=== PATIENT | female | born 1980 ===

== ENCOUNTER 2020-09-21 08:33 | Emergency (ER) | payer BC, OTHER ==
[2020-09-21] MEDS: Bacitracin Oint 1 GM U/D Packet TOP ONE (09:00)
--- NOTE | 2020-09-21 09:16 | EDM.PDOC ---
ED HPI GENERAL MEDICAL PROBLEM - General Chief Complaint: Laceration Stated Complaint: INJURED AT WORK Time Seen by Provider: 09/21/20 08:35 - History of Present Illness INITIAL COMMENTS - FREE TEXT/NARRATIVE: She cut her Rt 3rd finger at work while using a pill cutter. She held pressure to the area to stop the bleeding. - Related Data Allergies Allergy/AdvReac Type Severity Reaction Status Date / Time No Known Allergies Allergy Verified 09/21/20 08:52 Home Meds: Home Meds Phentermine HCl 50 mg PO DAILY 09/21/20 [History] hydroCHLOROthiazide [Hydrochlorothiazide] 50 mg PO DAILY 09/21/20 [History] ED ROS GENERAL - Review of Systems Review Of Systems: Comprehensive ROS is negative, except as noted in HPI. Skin: Reports: Other (Laceration to Rt 3rd finger.) ED EXAM, SKIN/RASH Exam: See Below Text/Narrative:: Pt has a 1.3 CM transverse laceration over the pad of the 3rd finger. It goes thru the epidermis and slightly into subq tissue. Nice clean edges. No bleeding now. ED SKIN PROCEDURES - Laceration/Wound Repair Right Distal Ventral Digit - 3rd (Middle) Appearance: Clean Distal NVT: Neuro & Vascular Intact Anesthetic Type: Local Local Anesthesia - Lidocaine (Xylocaine): 1% Plain Local Anesthetic Volume: 2cc Skin Prep: Providone-Iodine (Betadine), Sterile Drape Closed with: Sutures Lac/Wound length In cm: 1.5 Suture Size: 5-0 # of Sutures: 4 Suture Type: Nylon, Interrupted Departure - Departure Time of Disposition: 09:10 Disposition: Home, Self-Care 01 Condition: Good Clinical Impression: Laceration - Discharge Information *PRESCRIPTION DRUG MONITORING PROGRAM REVIEWED*: Not Applicable *COPY OF PRESCRIPTION DRUG MONITORING REPORT IN PATIENT DRU: Not Applicable Referrals: Shine Martinez MD [Primary Care Provider] - Additional Instructions: Monitor for infection. Tylenol or Motrin as needed for pain. Keep injury covered for 2-3 days. Suture removal in 8 - 10 days.
== END 2020-09-21 09:20 | disposition home or self-care (01) ==
LOC: LB.ED 08:33
DX: S61.212A Laceration without foreign body of right middle finger without damage to nail, initial encounter (principal); W26.8XXA Contact with other sharp object(s), not elsewhere classified, initial encounter; Y92.89 Other specified places as the place of occurrence of the external cause; Y99.0 Civilian activity done for income or pay
CPT/HCPCS: 12001; 99282-25

== ENCOUNTER 2021-05-30 08:16 | Emergency (ER) | payer BC ==
[2021-05-30] MEDS ORDERED: cefTRIAXone 1 GM Vial IM ONE (10:32)
[2021-05-30] MEDS ORDERED: cefTRIAXone 1 GM Vial ONE (10:58)
== END 2021-05-30 10:54 | disposition home or self-care (01) ==
LOC: LB.ED 08:16
DX: J18.9 Pneumonia, unspecified organism (principal); I10 Essential (primary) hypertension; Z20.822 Contact with and (suspected) exposure to COVID-19
CPT/HCPCS: 36415; 71045; 80053; 85025; 96372; 99281; 99285-25; J0696; U0002